=== PATIENT | female | born 1950 | race Caucasian/White ===

== ENCOUNTER 2022-02-21 00:19 | Emergency (ER) | payer BC, MEDICARE, OTHER ==
[~2022-02-21] VITALS: Ht 172.7 cm; Wt 136.1 kg
[2022-02-21 00:31] VITALS: BP 136/73
--- NOTE | 2022-02-21 01:34 | NUR ---
Patient left without being seen by ER Physician
== END 2022-02-21 01:34 | disposition left against medical advice (07) ==
LOC: ER 00:21
DX: Z53.21 Procedure and treatment not carried out due to patient leaving prior to being seen by health care provider (principal)